=== PATIENT | female | born 1980 | race Two or more races ===

== ENCOUNTER 2024-06-05 10:30 | Inpatient (IN) | payer OTHER ==
[~2024-06-05] VITALS: Ht 66 cm; Wt 73.5 kg
[2024-06-05 12:22] VITALS: BP 115/84
[2024-06-12] MEDS ORDERED: CEFAZOLIN SODIUM 1,000 MG VIAL IV SCH ×2 (08:30→14:00)
[2024-06-12] MEDS ORDERED: MORPHINE SULFATE 4 MG/ML VIAL IV ONE ×2 (10:25→10:55)
[2024-06-12] MEDS ORDERED: MEPERIDINE HCL/PF 50 MG/ML VIAL IM PRN ×2 (12:15)
[2024-06-12] MEDS ORDERED: RINGERS SOLUTION,LACTATED 1,000 ML IV SCH (12:15)
[2024-06-12] MEDS ORDERED: PROMETHAZINE HCL 50 MG/ML AMPUL IM PRN (12:15)
[2024-06-12] MEDS ORDERED: MEPERIDINE HCL 50 MG/ML AMPUL IM ONE (12:20)
[2024-06-12 13:00] VITALS: BP 109/52
[2024-06-13 00:49] VITALS: BP 123/70
[2024-06-13 03:36] LABS: HEMATOCRIT 33.3 % (36.0-45.00); MEAN CELL VOLUME 89.4 fL (80.00-100.00); MEAN CORPUSCULAR HEMOGLOBIN 29.6 pg (27.00-32.0); MEAN CORPUSCULAR HGB CONC 33.1 g/dl (32.0-36.0); PLATELET COUNT 256 K/uL (150-450); RED BLOOD COUNT 3.73 M/uL (4.00-6.00); RED CELL DISTRIBUTION WIDTH 14.2 % (11.5-14.5)
[2024-06-13] MEDS ORDERED: OxyCODONE HCL/APAP UD (PERCOCET) PO PRN (07:45)
[2024-06-13] MEDS ORDERED: ACETAMINOPHEN 500 MG GEL..CAP PO PRN (07:45)
[2024-06-13 09:00] VITALS: BP 120/79
[2024-06-13 16:00] VITALS: BP 118/78
[2024-06-14 00:22] VITALS: BP 105/67
[2024-06-14 08:00] VITALS: BP 105/70
[2024-06-14] MEDS ORDERED: IBUPROFEN800 MG PO (08:26)
== END 2024-06-14 10:00 | disposition home or self-care (01) | DRG 743 ==
LOC: O/R 06-12 05:00 → SURG 06-12 07:00 → OB/GYN 06-12 12:15
PROVIDERS: ADMIT Specialist; ATTEND Specialist
PROC: 0UT90ZZ Resection of Uterus, Open Approach (ICD-10-PCS; principal; 2024-06-12 07:00)
DX: D25.1 Intramural leiomyoma of uterus (principal); D25.2 Subserosal leiomyoma of uterus; N72 Inflammatory disease of cervix uteri; Z20.822 Contact with and (suspected) exposure to COVID-19